=== PATIENT | male | born 1950 | race American Indian/Alaskan Native ===

== ENCOUNTER 2017-06-18 18:59 | Inpatient (IN) | payer MEDICAID ==
[~2017-06-18] VITALS: Ht 185.4 cm; Wt 106.1 kg
[2017-06-18] MEDS ORDERED: KETOROLAC TROMETH 30 MG/ML 1ML VIAL IV ONE (22:15)
[2017-06-18 22:16] LABS: Basophils # (auto) 0.1 uL; Basophils % (auto) 0.8 % (0.0-2.0); Eosinophils # (auto) 0.1 uL; Eosinophils % (auto) 0.7 % (0.0-7.0); Hematocrit 40.3 % (41.0-53.0); Hemoglobin 13.7 g/dL (13.5-17.5); Lymphocytes # (auto) 2.3 uL; Lymphocytes % (auto) 15.8 % (10.0-50.0); Mean Corpuscular Hemoglobin 30.7 pg (28.0-32.0); Mean Corpuscular Hgb Conc. 33.9 g/dL (32.0-36.0); Mean Corpuscular Volume 90.5 fL (80.0-100.0); Monocytes # (auto) 1.7 uL; Monocytes % (auto) 11.7 % (0.0-12.0); Neutrophils # (auto) 10.5 uL; Platelet Count (auto) 335 10^3/uL (140-450); Red Blood Cells 4.46 10^6/uL (4.5-5.90); Red Cell Distribution Width 14.3 % (11.8-14.3); White Blood Cell 14.8 10^3/uL (4.4-10.8)
[2017-06-18 22:45] LABS: Alanine Aminotransferase 18 U/L (16-61); Albumin 2.8 g/dL (3.4-5.0); Alkaline Phosphatase 91 U/L (45-117); Anion Gap 9 (5-15); Aspartate Aminotransferase 25 U/L (15-37); BUN/Creatinine Ratio 20.5; Bilirubin, Total 1.3 mg/dL (0.2-1.0); Blood Urea Nitrogen 15 mg/dL (7-18); Carbon Dioxide 22 mmol/L (21-32); Chloride 101 mmol/L (98-107); GFR African American 139 mL/min; GFR Non-African American 115 mL/min; Glucose 107 mg/dL (74-106); Magnesium 2.2 mg/dL (1.6-2.6); Potassium 3.7 mmol/L (3.5-5.1); Sodium 132 mmol/L (136-145); Total Protein 7.9 g/dL (6.4-8.2)
[2017-06-18 23:08] LABS: CRP High Sensitivity 12.3 mg/dL (< 0.3); Uric Acid 4.8 mg/dL (3.5-7.2)
[2017-06-19] MEDS ORDERED: IOHEXOL 350 MG/ML 100ML IJ ONE (00:19)
[2017-06-19 03:58] LABS: Urine Bacteria NONE SEEN /hpf (None Seen); Urine Blood Negative /uL (Negative); Urine Budding Yeast OCCASIONAL /hpf (None Seen); Urine Mucus FEW (None Seen); Urine Specific Gravity 1.042 (1.001-1.035); Urine WBC 1 /hpf (0 - 3)
[2017-06-19] MEDS ORDERED: MORPHINE SULFATE 4 MG/ML SYR/VIAL IV PRN (05:00)
[2017-06-19] MEDS ORDERED: ACETAMINOPHEN 325 MG TAB PO PRN (05:00)
[2017-06-19] MEDS ORDERED: ONDANSETRON HCL 4 MG/2 ML VIAL IV PRN (05:00)
[2017-06-19] MEDS ORDERED: DOCUSATE SOD 100 MG CAP PO PRN (05:00)
[2017-06-19] MEDS ORDERED: METOPROLOL TARTRATE 1MG/1ML-5ML VIAL IV ONE ×2 (05:00→05:17)
[2017-06-19] MEDS ORDERED: TEMAZEPAM 15 MG CAP PO PRN (05:00)
[2017-06-19] MEDS ORDERED: NITROGLYCERIN 0.4 MG SL TAB SL PRN (05:00)
[2017-06-19] MEDS: IBUPROFEN 600 MG TAB PO SCH ×3 (05:56→22:00)
[2017-06-19] MEDS: cefTRIAXone 1GM/10ml IVPUSH 10 ML IV SCH (08:54)
[2017-06-19] MEDS: FAMOTIDINE 20 MG TAB PO SCH ×2 (08:54→22:07)
[2017-06-19] MEDS: ASPirin 81 mg TAB PO SCH (08:54)
[2017-06-19] MEDS: ENOXAPARIN SOD 40 MG/0.4 ML SYRINGE SC SCH (08:54)
[2017-06-19] MEDS: METOPROLOL TARTRATE 25 MG TAB PO SCH ×2 (08:54→22:06)
[2017-06-19] MEDS ORDERED: NAPR-223 PO (10:44)
[2017-06-19] MEDS: HYDROcodone-ACET 5/325MG TAB PO PRN (13:01)
[2017-06-19 16:51] VITALS: BP 111/71
[2017-06-19 20:18] LABS: Alcohol, Urine < 3.0 mg/dL (0-5); Amphetamine Screen, Urine POSITIVE (NEGATIVE); Barbiturate Scree,Urine NEGATIVE (NEGATIVE); Benzodiazephine Screen, Urine NEGATIVE (NEGATIVE); Cannabinoid Screen, Urine NEGATIVE (NEGATIVE); Cocaine Screen, Urine NEGATIVE (NEGATIVE); Opiate Scree,Urine NEGATIVE (NEGATIVE); Phencyclidine Screen, Urine NEGATIVE (NEGATIVE)
[2017-06-19 22:00] VITALS: BP 112/69
[2017-06-19] MEDS: ATORVASTATIN 20 MG TAB PO SCH (22:07)
[2017-06-20 05:00] VITALS: BP_SYST 108; BP_SYST 116; BP_SYST 144; BP_DIAS 75; BP_DIAS 76; BP_DIAS 80
[2017-06-20] MEDS: IBUPROFEN 600 MG TAB PO SCH ×3 (06:00→21:33)
[2017-06-20 07:35] LABS: Basophils # (auto) 0.1 uL; Basophils % (auto) 0.7 % (0.0-2.0); Eosinophils # (auto) 0.2 uL; Eosinophils % (auto) 2.3 % (0.0-7.0); Hematocrit 37.4 % (41.0-53.0); Hemoglobin 12.4 g/dL (13.5-17.5); Lymphocytes # (auto) 2.4 uL; Lymphocytes % (auto) 23.4 % (10.0-50.0); Mean Corpuscular Hemoglobin 30.6 pg (28.0-32.0); Mean Corpuscular Hgb Conc. 33.2 g/dL (32.0-36.0); Mean Corpuscular Volume 92.2 fL (80.0-100.0); Monocytes # (auto) 1.2 uL; Monocytes % (auto) 11.8 % (0.0-12.0); Neutrophils # (auto) 6.4 uL; Neutrophils % (auto) 61.8 % (37.0-80.0); Platelet Count (auto) 309 10^3/uL (140-450); Red Blood Cells 4.05 10^6/uL (4.5-5.90); Red Cell Distribution Width 14.4 % (11.8-14.3); White Blood Cell 10.4 10^3/uL (4.4-10.8)
[2017-06-20 07:52] LABS: Albumin 2.6 g/dL (3.4-5.0); BUN/Creatinine Ratio 21.1; Bilirubin, Total 0.7 mg/dL (0.2-1.0); Calcium 8.7 mg/dL (8.5-10.1); Potassium 3.8 mmol/L (3.5-5.1); Total Protein 7.5 g/dL (6.4-8.2)
[2017-06-20 07:58] LABS: Cholesterol 126 mg/dL (< 200); HDL Cholesterol 27 mg/dL (40-59); LDL Cholesterol 93 mg/dL (< 100); Triglycerides 70 mg/dL (< 150)
[2017-06-20 09:00] VITALS: BP 123/79
[2017-06-20] MEDS: cefTRIAXone 1GM/10ml IVPUSH 10 ML IV SCH (09:03)
[2017-06-20] MEDS: ASPirin 81 mg TAB PO SCH (09:03)
[2017-06-20] MEDS: FAMOTIDINE 20 MG TAB PO SCH ×2 (09:04→21:34)
[2017-06-20] MEDS: METOPROLOL TARTRATE 25 MG TAB PO SCH ×2 (09:04→21:33)
[2017-06-20] MEDS: ENOXAPARIN SOD 40 MG/0.4 ML SYRINGE SC SCH (09:04)
[2017-06-20 13:00] VITALS: BP 105/74
[2017-06-20] MEDS: NICOTINE 14 MG/24HR TOPICAL PATCH TD SCH (16:19)
[2017-06-20 17:00] VITALS: BP 135/82
[2017-06-20] MEDS: ATORVASTATIN 20 MG TAB PO SCH (21:33)
[2017-06-20] MEDS: HYDROcodone-ACET 5/325MG TAB PO PRN (21:34)
[2017-06-20 22:00] VITALS: BP 101/61
[2017-06-21 05:00] VITALS: BP 110/73
[2017-06-21] MEDS: IBUPROFEN 600 MG TAB PO SCH ×2 (05:59→14:00)
[2017-06-21 06:39] LABS: Basophils # (auto) 0.1 uL; Basophils % (auto) 0.7 % (0.0-2.0); Eosinophils # (auto) 0.3 uL; Eosinophils % (auto) 4.4 % (0.0-7.0); Hematocrit 37.6 % (41.0-53.0); Hemoglobin 12.5 g/dL (13.5-17.5); Lymphocytes % (auto) 25.9 % (10.0-50.0); Mean Corpuscular Hemoglobin 30.6 pg (28.0-32.0); Mean Corpuscular Hgb Conc. 33.2 g/dL (32.0-36.0); Mean Corpuscular Volume 92.2 fL (80.0-100.0); Monocytes # (auto) 0.9 uL; Monocytes % (auto) 11.3 % (0.0-12.0); Neutrophils # (auto) 4.4 uL; Neutrophils % (auto) 57.7 % (37.0-80.0); Nucleated Red Blood Cells % 0.1 %; Platelet Count (auto) 298 10^3/uL (140-450); Red Blood Cells 4.08 10^6/uL (4.5-5.90); Red Cell Distribution Width 14.6 % (11.8-14.3); White Blood Cell 7.6 10^3/uL (4.4-10.8)
[2017-06-21 06:41] LABS: BUN/Creatinine Ratio 30.3; Calcium 8.6 mg/dL (8.5-10.1)
[2017-06-21 09:00] VITALS: BP 121/84
[2017-06-21] MEDS: NICOTINE 14 MG/24HR TOPICAL PATCH TD SCH (09:05)
[2017-06-21] MEDS: METOPROLOL TARTRATE 25 MG TAB PO SCH (09:05)
[2017-06-21] MEDS: FAMOTIDINE 20 MG TAB PO SCH (09:06)
[2017-06-21] MEDS: ASPirin 81 mg TAB PO SCH (09:06)
[2017-06-21] MEDS: ENOXAPARIN SOD 40 MG/0.4 ML SYRINGE SC SCH (09:06)
[2017-06-21 10:37] VITALS: BP 121/84
[2017-06-21 13:00] VITALS: BP 107/73
[2017-06-22 09:31] LABS: Hepatitis B Surface Antibody Negative
[2017-06-22 09:41] LABS: Hepatitis B Surface Antigen Negative (Negative)
[2017-06-22 10:09] LABS: Hepatitis A Total Antibody Negative
[2017-06-22 10:10] LABS: Hepatitis B Core Total AB Negative
[2017-06-22 10:49] LABS: Hepatitis C Antibody Positive (Negative)
== END 2017-06-21 14:08 | disposition home or self-care (01) | DRG 433 ==
LOC: ER 18:59 → TELE 19:00 → TELE-EAST 06-19 10:20
PROVIDERS: ADMIT Nurse Practitioner; ATTEND Internal Medicine
DX: K74.60 Unspecified cirrhosis of liver (principal); I30.9 Acute pericarditis, unspecified; R65.10 Systemic inflammatory response syndrome (SIRS) of non-infectious origin without acute organ dysfunction; J98.11 Atelectasis; B19.20 Unspecified viral hepatitis C without hepatic coma; D72.829 Elevated white blood cell count, unspecified; E66.9 Obesity, unspecified; F12.90 Cannabis use, unspecified, uncomplicated; F17.210 Nicotine dependence, cigarettes, uncomplicated; I51.7 Cardiomegaly; I87.2 Venous insufficiency (chronic) (peripheral); K80.20 Calculus of gallbladder without cholecystitis without obstruction; Z59.0 Homelessness; R79.1 Abnormal coagulation profile
CPT/HCPCS: 36415; 70450; 71045; 71275; 73600; 80048; 80053; 80061; 80307; 81001; 83605; 83735; 83880; 84443; 84484; 84550; 85025; 85379; 85652; 86141; 86704; 86706; 86708; 86803; 87040; 87340; 87804; 93005; 93306; 93970; 94761; 96372; 96374; J2405